=== PATIENT | male | born 1940 | race Hispanic/Latino ===

== ENCOUNTER 2020-07-25 05:48 | Observation (INO) | payer OTHER ==
[2020-07-20 14:22] LABS: HEMATOCRIT 31.6 % (42-54); MEAN CORPUSCULAR HEMOGLOBIN 32.6 pg (27.0-33.0); MEAN CORPUSCULAR HGB CONC 33.5 g/dL (32.0-36.0); MEAN CORPUSCULAR VOLUME 97.2 fL (79-99); PLATELET COUNT (AUTO) 187 K/uL (130-400); RED BLOOD CELL COUNT(AUTO) 3.25 MIL/uL (4.50-6.20); RED CELL DISTRIBUTION WIDTH 12.6 % (11.0-15.5); WHITE BLOOD COUNT (AUTO) 2.8 K/uL (4.8-10.8)
[2020-07-20 14:33] LABS: APPEARANCE,URINE Clear (CLEAR); BILIRUBIN,URINE Negative (NEGATIVE); COLOR,URINE Yellow (YELLOW); GLUCOSE, URINE (UA) Negative (NEGATIVE); KETONES,URINE Negative (NEGATIVE); LEUKOCYTE ESTERASE ,URINE Trace (NEGATIVE); NITRATE,URINE Negative (NEGATIVE); OCCULT BLOOD,URINE Small (NEGATIVE); PROTEIN,URINE Negative (NEGATIVE); UROBILINOGEN,URINE 0.2 mg/dL (0.2-1.0)
[2020-07-20 14:40] LABS: INR 1.01 (0.85-1.15)
[2020-07-20 14:41] LABS: PARTIAL THROMBOPLASTIN TIME 28.7 SEC (26.3-35.5)
[2020-07-20 14:47] LABS: ALBUMIN 3.5 g/dL (3.5-5.0); BILIRUBIN,TOTAL 0.2 mg/dL (0.2-1.0); CREATININE 0.9 mg/dL (0.5-1.5); POTASSIUM 4.6 mmol/L (3.5-5.1); TOTAL PROTEIN, SERUM 6.7 g/dL (6.0-8.3)
[2020-07-20 15:03] LABS: BACTERIA,URINE Moderate /HPF (None Seen); MUCUS,URINE Few LPF (None Seen); SQUAMOUS EPITHELIAL CELL,UR 0-2 /HPF (0-2); YEAST,URINE BUDDING Few /HPF (None Seen)
[2020-07-20 15:14] LABS: BASOPHILS % (MANUAL) 2 % (0-2); EOSINOPHILS % (MANUAL) 1 % (1-6); LYMPHOCYTES % (MANUAL) 36 % (22-44); MAN.DIFF COMMENT-IMPRESSION MANUAL DIFFERENTIAL; MONOCYTES % (MANUAL) 11 % (2-9); SEGMENTED NEUTROPHILS % 50 % (40-70)
[2020-07-20 15:15] LABS: PLATELET MORPHOLOGY COMMENT ADEQUATE
[2020-07-24 09:32] VITALS: BP 131/65
[2020-07-25] VITALS (22 sets, daily range): BP systolic 109–179; BP diastolic 51–82
[~2020-07-25] VITALS: Ht 165.1 cm; Wt 69.2 kg
[2020-07-25] MEDS ORDERED: LACTATED RINGERS 1000ML 1,000 ML IV SCH (06:00)
[2020-07-25] MEDS ORDERED: ZOSYN 3.375GM+NS 50ML 50 ML IV SCH (06:00)
[2020-07-25] MEDS ORDERED: ONDANSETRON HCL 4 MG/2 ML VIAL ONE (06:59)
[2020-07-25] MEDS ORDERED: LIDOCAINE PF 2% 5ML ABBOJECT ONE (06:59)
[2020-07-25] MEDS ORDERED: PROPOFOL 10 MG/ML 20ML VIAL IV ONE (07:00)
[2020-07-25] MEDS ORDERED: ROCURONIUM 10MG/1ML SYR 10 MG/ML ML ONE (07:00)
[2020-07-25] MEDS ORDERED: FENTANYL CITRATE PF 50 MCG/1 ML 2ML VIAL ONE (07:02)
[2020-07-25] MEDS ORDERED: SULF1TAB42 PO (07:35)
[2020-07-25] MEDS ORDERED: DICY20TA11 PO (07:35)
[2020-07-25] MEDS ORDERED: SIMV-43 PO (07:35)
[2020-07-25] MEDS ORDERED: GABA300C PO (07:35)
[2020-07-25] MEDS ORDERED: ISOS10TA8 PO (07:35)
[2020-07-25] MEDS ORDERED: NEOSTIGMINE 5MG/5ML SYR IV ONE (07:46)
[2020-07-25] MEDS ORDERED: GLYCOPYRROLATE 1 MG/5 ML SYRINGE ONE (07:46)
[2020-07-25] MEDS ORDERED: FINA5TAB41 PO (08:08)
[2020-07-25] MEDS ORDERED: DOXA8TAB81 PO (08:08)
[2020-07-25] MEDS ORDERED: FURO20TA4 PO (08:08)
[2020-07-25] MEDS ORDERED: PANT40TA54 PO (08:08)
[2020-07-25] MEDS ORDERED: RANO10005 PO (08:08)
[2020-07-25] MEDS ORDERED: CILO50TA PO (08:08)
[2020-07-25] MEDS ORDERED: OXYC10TA48 PO (08:08)
[2020-07-25] MEDS ORDERED: TAMS-1 PO (08:08)
[2020-07-25] MEDS ORDERED: SACU1TAB7 PO (08:08)
[2020-07-25] MEDS ORDERED: PRIM50TA23 PO (08:08)
[2020-07-25] MEDS ORDERED: MORPHINE SULFATE 2 MG/ML 1ML SYG ONE ×2 (08:12→08:25)
[2020-07-25] MEDS ORDERED: ONDANSETRON HCL 4 MG/2 ML VIAL IVP PRN (10:00)
[2020-07-25] MEDS ORDERED: MEPERIDINE-PF 75 MG/ML SYG IM PRN (10:00)
[2020-07-25] MEDS ORDERED: ACETAMINOPHEN 325 MG TAB PO PRN (10:00)
[2020-07-25] MEDS: LACTATED RINGERS 1000ML 1,000 ML IV SCH (10:37)
[2020-07-25] MEDS: ACETAMINOPHEN-CODEINE 300/30MG TAB PO PRN ×3 (11:33→21:00)
[2020-07-25] MEDS: ZOSYN 3.375GM+NS 50ML 50 ML IV SCH (16:06)
[2020-07-26 00:20] VITALS: BP 150/67
[2020-07-26] MEDS ORDERED: NITROGLYCERIN 0.4 MG SL TAB SL PRN (00:45)
[2020-07-26] MEDS ORDERED: NITROGLYCERIN 0.4 MG SL TAB SL ONE (00:48)
[2020-07-26] MEDS: LACTATED RINGERS 1000ML 1,000 ML IV SCH (00:51)
[2020-07-26] MEDS: ZOSYN 3.375GM+NS 50ML 50 ML IV SCH ×3 (00:51→16:34)
[2020-07-26 01:35] LABS: CREATINE KINASE, TOTAL 61 U/L (21-232); MYOGLOBIN 31 ng/mL (10-92); TROPONIN I < 0.04 ng/mL (0.00-0.06)
[2020-07-26] MEDS ORDERED: OXYCODONE HCL 5 MG TAB PO PRN (03:00)
[2020-07-26 03:59] VITALS: BP 157/74
[2020-07-26] MEDS: ACETAMINOPHEN-CODEINE 300/30MG TAB PO PRN ×2 (05:03→09:15)
[2020-07-26 05:53] LABS: BASOPHILS % (AUTO) 0.5 % (0.0-5.0); EOSINOPHILS % (AUTO) 0.5 % (0.0-8.0); HEMATOCRIT 34.1 % (42-54); LYMPHOCYTES % (AUTO) 11.1 % (21.0-51.0); MEAN CORPUSCULAR HEMOGLOBIN 32.5 pg (27.0-33.0); MEAN CORPUSCULAR HGB CONC 33.7 g/dL (32.0-36.0); MEAN CORPUSCULAR VOLUME 96.3 fL (79-99); MONOCYTES % (AUTO) 12.4 % (3.0-13.0); NEUTROPHILS % (AUTO) 75.2 % (40.0-77.0); PLATELET COUNT (AUTO) 167 K/uL (130-400); RED BLOOD CELL COUNT(AUTO) 3.54 MIL/uL (4.50-6.20); RED CELL DISTRIBUTION WIDTH 12.6 % (11.0-15.5); WHITE BLOOD COUNT (AUTO) 3.8 K/uL (4.8-10.8)
[2020-07-26 06:05] LABS: CREATININE 0.9 mg/dL (0.5-1.5); POTASSIUM 4.3 mmol/L (3.5-5.1)
[2020-07-26 06:15] LABS: CREATINE KINASE, TOTAL 60 U/L (21-232); MYOGLOBIN 33 ng/mL (10-92); TROPONIN I < 0.04 ng/mL (0.00-0.06)
[2020-07-26 08:06] VITALS: BP 194/76
[2020-07-26] MEDS ORDERED: FUROSEMIDE 20 MG TABLET PO SCH (09:00)
[2020-07-26] MEDS ORDERED: SULFAMETHOX-TMP DS 800/160 TAB PO SCH (09:00)
[2020-07-26] MEDS ORDERED: PRIMIDONE 50 MG TAB PO SCH (09:00)
[2020-07-26] MEDS ORDERED: TAMSULOSIN HCL 0.4 MG CAP.ER.24H PO SCH (09:00)
[2020-07-26] MEDS ORDERED: RANOLAZINE 500 MG TAB.SR.12H PO SCH (09:00)
[2020-07-26] MEDS ORDERED: FINASTERIDE 5 MG TABLET PO SCH (09:00)
[2020-07-26] MEDS ORDERED: CILOSTAZOL 100 MG TAB PO SCH (09:00)
[2020-07-26] MEDS ORDERED: SACUBITRIL PO SCH (09:00)
[2020-07-26] MEDS ORDERED: GABAPENTIN 300 MG CAPSULE PO SCH (09:00)
[2020-07-26] MEDS ORDERED: PANTOPRAZOLE SODIUM 40 MG TABLET.DR PO SCH (09:00)
[2020-07-26] MEDS ORDERED: ISOSORBIDE MONONITRATE 20 MG TABLET PO SCH (09:00)
[2020-07-26] MEDS ORDERED: VALSARTAN PO SCH (09:00)
[2020-07-26] MEDS: DICYCLOMINE HCL 20 MG TAB PO SCH ×2 (09:06→16:34)
[2020-07-26] MEDS ORDERED: PHARMACY COMMUNICATION MISC SCH (09:15)
[2020-07-26] MEDS ORDERED: LOSARTAN 25 MG TABLET PO SCH (09:30)
[2020-07-26 12:29] LABS: CREATINE KINASE, TOTAL 63 U/L (21-232); MYOGLOBIN 34 ng/mL (10-92); TROPONIN I < 0.04 ng/mL (0.00-0.06)
[2020-07-26 12:31] VITALS: BP 113/71
[2020-07-26] MEDS ORDERED: LACTATED RINGERS 1000ML 1,000 ML IV SCH (17:00)
[2020-07-26 17:07] VITALS: BP 162/80
[2020-07-26] MEDS ORDERED: SIMVASTATIN 20 MG TABLET PO SCH (21:00)
[2020-07-26] MEDS ORDERED: DOXAZOSIN MESYLATE 2 MG TABLET PO SCH (21:00)
== END 2020-07-26 19:40 | disposition home or self-care (01) ==
LOC: DAH 05:48 → 3AH 05:49
PROVIDERS: ADMIT Urology; ATTEND Urology
DX: N40.1 Benign prostatic hyperplasia with lower urinary tract symptoms (principal); Z20.822 Contact with and (suspected) exposure to COVID-19; R33.9 Retention of urine, unspecified; N32.0 Bladder-neck obstruction; F32.9 Major depressive disorder, single episode, unspecified; N42.89 Other specified disorders of prostate; I10 Essential (primary) hypertension; I25.10 Atherosclerotic heart disease of native coronary artery without angina pectoris; I11.0 Hypertensive heart disease with heart failure; I50.22 Chronic systolic (congestive) heart failure; E03.9 Hypothyroidism, unspecified; K21.9 Gastro-esophageal reflux disease without esophagitis; Z95.1 Presence of aortocoronary bypass graft; Z95.810 Presence of automatic (implantable) cardiac defibrillator; Z79.899 Other long term (current) drug therapy
CPT/HCPCS: 36415 ×2; 52630; 71046; 80048; 80053; 81001; 82550 ×3; 82948; 83874 ×3; 83880; 84484 ×4; 85025; 85027; 85610; 85730; 87077; 87088; 87186; 93005 ×2; 96361; 96365; 96366 ×3; 96372; A4215; A4221; A4222; A4223; A4346; A4354; A4358; A4510; A4600; A4663; A5113; A6260; C9803; G0378 ×36; J2001; J2175; J2405; J2543 ×4; J2704; J2710; J3010; J3490; J7120 ×3; U0003

== ENCOUNTER 2020-07-28 09:57 | Emergency (ER) | payer OTHER ==
[~2020-07-28 09:57] MED LIST: CILO50TA PO; DICY20TA11 PO; DOXA8TAB81 PO; FINA5TAB41 PO; FURO20TA4 PO; GABA300C PO; ISOS10TA8 PO; OXYC10TA48 PO; PANT40TA54 PO; PRIM50TA23 PO; RANO10005 PO; SACU1TAB7 PO; SIMV-43 PO; SULF1TAB42 PO; TAMS-1 PO
[2020-07-28] MEDS ORDERED: PHENAZOPYRIDINE HCL 200 MG TABLET ONE (10:43)
[2020-07-28 10:57] LABS: BASOPHILS % (AUTO) 0.9 % (0.0-5.0); EOSINOPHILS % (AUTO) 4.7 % (0.0-8.0); HEMATOCRIT 29.2 % (42-54); LYMPHOCYTES % (AUTO) 15.7 % (21.0-51.0); MEAN CORPUSCULAR HEMOGLOBIN 32.9 pg (27.0-33.0); MEAN CORPUSCULAR HGB CONC 33.6 g/dL (32.0-36.0); NEUTROPHILS % (AUTO) 62.4 % (40.0-77.0); PLATELET COUNT (AUTO) 162 K/uL (130-400); RED BLOOD CELL COUNT(AUTO) 2.98 MIL/uL (4.50-6.20); RED CELL DISTRIBUTION WIDTH 12.7 % (11.0-15.5); WHITE BLOOD COUNT (AUTO) 3.4 K/uL (4.8-10.8)
[2020-07-28 11:13] LABS: APPEARANCE,URINE Clear (CLEAR); BILIRUBIN,URINE Negative (NEGATIVE); COLOR,URINE Yellow (YELLOW); GLUCOSE, URINE (UA) Negative (NEGATIVE); KETONES,URINE Negative (NEGATIVE); LEUKOCYTE ESTERASE ,URINE Large (NEGATIVE); NITRATE,URINE Negative (NEGATIVE); OCCULT BLOOD,URINE Large (NEGATIVE); PH,URINE 6.5 (5.0-8.0); PROTEIN,URINE POS 2+ mg/dL (NEGATIVE)
[2020-07-28 11:13] LABS: ALBUMIN 3.1 g/dL (3.5-5.0); BILIRUBIN,TOTAL 0.1 mg/dL (0.2-1.0); TOTAL PROTEIN, SERUM 6.2 g/dL (6.0-8.3)
[2020-07-28 11:23] LABS: BACTERIA,URINE Rare /HPF (None Seen); RBC,URINE >100 /HPF (0-1); SQUAMOUS EPITHELIAL CELL,UR Rare /HPF (0-2)
[2020-07-28] MEDS ORDERED: ACETAMINOPHEN EXTRA STRENGTH 500 MG TABLET ONE (13:24)
== END 2020-07-28 16:03 | disposition home or self-care (01) ==
LOC: EDH 09:57
DX: T83.098A Other mechanical complication of other urinary catheter, initial encounter (principal); E11.9 Type 2 diabetes mellitus without complications; I25.10 Atherosclerotic heart disease of native coronary artery without angina pectoris; E78.5 Hyperlipidemia, unspecified; Z87.891 Personal history of nicotine dependence
CPT/HCPCS: 36415; 70450; 80053; 81001; 82150; 83690; 85025; 87088